=== PATIENT | male | born 1975 | race Caucasian/White ===

== ENCOUNTER 2023-11-14 21:13 | Emergency (ER) | payer BC, SELFPAY ==
[2023-11-14 21:18] VITALS: BP 136/96
--- NOTE | 2023-11-15 00:09 | ED.GENMED ---
History of Present Illness
<MARY Ya - Last Filed: 11/15/23 00:26>
General
Chief Complaint: Eye Problems
Source: patient
Time Seen by Provider: 11/15/23 00:02
Travel History
Have you had any contact with someone who has COVID-19?: No
Do you have any symptoms of coronavirus? Fever > 100 degrees, chills, cough, shortness of breath, sore throat, loss of taste or smell, muscle aches, or headache?: No
History of Present Illness
History of Present Illness:
48 year old male with no significant past medical hx who presents with L eye foreign body sensation and redness that began at 1600 today. Pt was working under the car fixing the brakes when dirt got into his eye. He scratched his eye with hands. He
flushed it out with saline. He feels that there is something still in his eye. He also used his son's prednisone eye drops and systane eye drops earlier today without relief. He also has increased tearing to the eye with associated runny nose.
States he has a mild headache from rubbing his eye. Denies symptoms to the R eye. Denies vision changes, dizziness. Denies use of corrective lenses.
Review of Systems
<MARY Ya - Last Filed: 11/15/23 00:26>
Review of Systems
Allergies reviewed?: Yes
All Other Systems: ROS reviewed and negative except as documented in HPI and ROS
Constitutional: Reports no symptoms
EENT: Reports runny nose and other (L eye redness, foreign body sensation, and increased tearing)
Respiratory: Reports no symptoms
Cardiac: Reports no symptoms
ABD/GI: Reports no symptoms
: Reports no symptoms
Musculoskeletal: Reports no symptoms
Skin: Reports no symptoms
Neurological: Reports no symptoms
Endocrine: Reports no symptoms
Hematologic/Lymphatic: Reports no symptoms
Psychiatric: Reports no symptoms
Phy Exam
<MARY Ya - Last Filed: 11/15/23 00:26>
General Physical Exam
General Presentation: well appearing and no apparent distress
General age: appears stated age
General Skin: warm and dry
General Habitus: normal
General Mental: alert
General Hydration: appears well hydrated
Eye Exam
Eye Exam: PERRL and EOMI
Conjunctival Changes: left: chemosis
Eyelid Exam: red and inflamed: Left
Cardiovascular Exam
Cardiovascular Exam: regular rate/rhythm, no edema, no gallop and no murmur
Pulmonary Exam
Pulmonary Exam: lungs clear, no respiratory distress, no rales, no crackles, no rhonchi, no wheezing and no cough
Neurological Exam
Neurological Exam: alert and oriented x3
Skin Exam
Skin Exam: normal color and warm/dry
Psychiatric Exam
Psychiatric Exam: normal mood/affect
Course
<MARY Ya - Last Filed: 11/15/23 00:26>
Orders/Labs/Results
Orders:
Orders
11/15/23 00:42
Tetracaine HCl [Tetracaine 0.5% Ophthalmic Solution] 1 drop .ROUTE .STK-MED ONE
11/15/23 00:43
Fluorescein Sodium [Ful-Rahel] 1 mg .ROUTE .STK-MED ONE
Vital Signs
Initial and Last Documented VS:
Initial Vital Signs
Temp Pulse Resp BP Pulse Ox
97.7 F 65 18 136/96 98
11/14/23 21:18 11/14/23 21:18 11/14/23 21:18 11/14/23 21:18 11/14/23 21:18
Last Documented Vital Signs
Temp Pulse Resp BP Pulse Ox
97.7 F 65 18 136/96 98
11/14/23 21:18 11/14/23 21:18 11/14/23 21:18 11/14/23 21:18 11/14/23 21:18
<Bing Morrow MD - Last Filed: 11/15/23 00:55>
Orders/Labs/Results
Orders:
Orders
11/15/23 00:42
Tetracaine HCl [Tetracaine 0.5% Ophthalmic Solution] 1 drop .ROUTE .STK-MED ONE
11/15/23 00:43
Fluorescein Sodium [Ful-Rahel] 1 mg .ROUTE .STK-MED ONE
Vital Signs
Initial and Last Documented VS:
Initial Vital Signs
Temp Pulse Resp BP Pulse Ox
97.7 F 65 18 136/96 98
11/14/23 21:18 11/14/23 21:18 11/14/23 21:18 11/14/23 21:18 11/14/23 21:18
Last Documented Vital Signs
Temp Pulse Resp BP Pulse Ox
97.7 F 65 18 136/96 98
11/14/23 21:18 11/14/23 21:18 11/14/23 21:18 11/14/23 21:18 11/14/23 21:18
<MARY Ya - Last Filed: 11/15/23 00:26>
MDM/Problems Addressed
Differential Diagnosis Includes:
eye irritation, corneal abrasion
MDM/Problems Addressed:
48 year old who presents with L eye foreign body sensation with redness that began at 1600 today.
<MARY Ya - Last Filed: 11/15/23 00:26>
*Critical Care Note
Total Time (30-74mins, 75-104mins- exclusive of procedures): Not Applicable
ED Attending Note
<MARY Ya - Last Filed: 11/15/23 00:26>
-
Portions of this chart may have been created with voice recognition software.� Occasional wrong word or��sound alike� substitutions may have occurred due to the inherent limitations of voice recognition software.
<Bing Morrow MD - Last Filed: 11/15/23 00:55>
ED Attending Note
Patient seen and examined by attending physician: Yes
I performed the substantive portion of visit, reviewed & personally made and approve the management plan that is documented in note by myself or ADA.: Yes
ED Attending Note:
48-year-old male who was working under his vehicle this afternoon and some dirt fell in his left eye. He washed it out with saline, but notes a foreign body sensation and redness. He denies double vision, loss of vision, blurry vision, discharge,
headache, nausea, vomiting, numbness, tingling, or other complaints. Patient is unaware of his last tetanus shot. He does not wear glasses or checks. On exam, pupils equal round reactive to exam, EOMI, no photophobia, no foreign body noted
through full range of motion. On fluorescein exam, no uptake noted. There is mild chemosis and conjunctival injection, no drainage. Exam otherwise normal.
Patient presents to the Emergency Department with left eye foreign body sensation___
Number and Complexity of Problems Addressed at the Encounter
� Chronic conditions affecting care:
� Acute Exacerbation and/or Progression of Chronic Illness:
� Differential Diagnosis includes: But not limited to irritation from dirt, foreign body, corneal abrasion, etc.
Amount and/or Complexity of Data to be Reviewed and Analyzed
� I performed an independent evaluation of and my interpretation is:
EKG:
CT:
Xrays:
Laboratory Studies:
Other:
� Review of other/old records reveals:
� Clinical information was obtained by an independent historian: who is bedside
� Prescriptions/Medications Considered but not given:
� Further testing considered but not performed:
Risk of Complications and/or Morbidity or Mortality of Patient Management
� Social determinants of health affecting care:
� Discussion with other providers (PCP, Hospitalists, Consultants, etc):
� Escalation of care including admission/observation vs risk of discharge considered: Visual acuity noted normal, no foreign body or corneal abrasion noted. Patient already irrigated eye. Will discharge with antibiotic drops
and ophtho follow-up.
Discharge Plan
Departure
Patient Disposition: Home (Routine Discharge)
Date of Disposition: 11/15/23
Time of Disposition: 00:52
Patient with high blood pressure during this ER visit?: Yes
Condition: Good
Discharge Problem:
Eye irritation
Instructions: How to Use Eye Drops, BLOOD PRESSURE
Prescriptions:
New
sulfacetamide sodium 10 % drops
2 drp ophthalmic (eye) Q4H Qty: 15 0RF
Referrals:
Stephane Urrutia DO [Family Provider] -
Judie Lorenz MD [Active] - As needed
Activity Restrictions/Additional Instructions:
IF YOU DEVELOP INCREASING/NEW REDNESS, ANY DRAINAGE, CHANGE IN VISION, PAIN, VOMITING, OR OTHER WORRISOME SIGNS, GO TO THE ER IMMEDIATELY!
Interventions
Interventions:
*Risk Screen - Suicide Last Done: 11/15/23 00:13
*General Assessment Last Done: 11/15/23 00:13
*Neglect/Abuse Screening Last Done: 11/15/23 00:13
Discharge Date and Time
Print Language: QATARI
== END 2023-11-15 01:11 | disposition home or self-care (01) ==
LOC: EMR 21:13
PROVIDERS: EMERGENCY PHYSICIAN Emergency Medicine; FAMILY PHYSICIAN Family Medicine
DX: T15.02XA Foreign body in cornea, left eye, initial encounter (principal); H57.89 Other specified disorders of eye and adnexa; R51.9 Headache, unspecified; R09.89 Other specified symptoms and signs involving the circulatory and respiratory systems; W44.8XXA Other foreign body entering into or through a natural orifice, initial encounter; Y93.89 Activity, other specified; R03.0 Elevated blood-pressure reading, without diagnosis of hypertension
CPT/HCPCS: 99283